=== PATIENT | male | born 1980 | race Caucasian/White ===

== ENCOUNTER 2020-04-26 17:42 | Emergency (ER) | payer OTHER ==
[~2020-04-26] VITALS: Ht 170.2 cm; Wt 74.8 kg
[2020-04-26 19:06] LABS: ABSOLUTE NEUTROPHILS 5.1 thou/uL (1.4-8.2); BASOPHILS 0.9 % (0.0-2.0); EOSINOPHILS 2.1 % (0.0-3.0); HEMATOCRIT 44.4 % (42.0-52.0); HEMOGLOBIN 15.3 gm/dL (14.0-18.0); LYMPHOCYTES 29.4 % (24.0-44.0); MCH 32.6 pg (26.0-34.0); MCHC 34.3 g/dL (28.0-37.0); MCV 94.9 fL (80.0-100.0); MONOCYTES 8.9 % (1.0-8.0); PLATELET COUNT 201 thou/uL (150-400); POLYS 58.7 % (36.0-66.0); RBC 4.68 mil/uL (4.50-6.00); RDW 14.3 % (10.5-14.5); WBC 8.7 thou/uL (4.0-11.0)
[2020-04-26 19:15] LABS: ANION GAP 9 mmol/L (7-16); BUN 15 mg/dL (7-18); CALCIUM 8.4 mg/dL (8.5-10.1); CHLORIDE 102 mmol/L (98-107); CO2 27 mmol/L (21-32); CREATININE 0.8 mg/dL (0.7-1.3); GLUCOSE 92 mg/dL (74-106); POTASSIUM 3.6 mmol/L (3.5-5.1); SODIUM 138 mmol/L (136-145)
[2020-04-26 19:25] LABS: ALBUMIN 4.1 g/dL (3.4-5.0); SGOT 19 U/L (15-37); SGPT 29 U/L (30-65); TOTAL BILIRUBIN 0.6 mg/dL (0.2-1.0); TOTAL PROTEIN 7.7 g/dL (6.4-8.2); TROPONIN-I <0.06 ng/mL (<0.06)
[2020-04-26 21:10] VITALS: BP 121/82
[2020-04-26] MEDS ORDERED: CYCLOBENZAPRINE5 MG PO (21:13)
[2020-04-26] MEDS ORDERED: NORCO 5-325 TA1 EAC2 PO (21:13)
--- NOTE | 2020-04-27 10:18 | EKG ---
[facility] [place] [address] ELECTROCARDIOGRAM REPORT Name: MERLINE ROBLES Room #: DEP [facility].#: [id number] Admission: 04/26/20 Attend Phys: Discharge: 04/26/20 Date of : 78 Report #: [id number] THIS REPORT FOR: cc: ANSLEY - Val family physician/PCP ANSLEY - Val family physician/PCP Kelvin Rendon MD [facility] THIS REPORT FOR: //name// [facility] ED Test Date: 2020-04-26 Test Time: 18:46:53 Pat Name: MERLINE ROBLES Department: Room: Gender: Mechanical Development Engineer: : 1980 Requested By: Carla Berry Order Number: [id number] MD: Kelvin Rendon Measurements Intervals Sarita Rate: 86 P: 70 RI: 180 QRS: 63 QRSD: 92 T: 36 QT: 361 QTc: 432 Interpretive Statements Sinus rhythm No significant abnormality Baseline wander in lead(s) V2 No previous ECG available for comparison Electronically Signed On 04-27-2020 10:18:32 CDT by Kelvin Rendon [email or web address] <ELECTRONICALLY SIGNED> By: Kelvin Rendon MD, [facility] 04/27/20 1018 [id number] Kelvin Rendon MD, [facility] /EPI
== END 2020-04-26 21:45 | disposition home or self-care (01) ==
LOC: ER 17:42
PROVIDERS: Physician Assistant
DX: S16.1XXA Strain of muscle, fascia and tendon at neck level, initial encounter (principal); S09.90XA Unspecified injury of head, initial encounter; R07.89 Other chest pain; R10.9 Unspecified abdominal pain; R04.0 Epistaxis; V89.2XXA Person injured in unspecified motor-vehicle accident, traffic, initial encounter; Y93.I9 Activity, other involving external motion; Y92.488 Other paved roadways as the place of occurrence of the external cause; Y99.8 Other external cause status